=== PATIENT | female | born 1955 | race Caucasian/White ===

== ENCOUNTER 2017-07-17 13:45 | Emergency (ER) | payer OTHER ==
[2017-07-17 13:58] VITALS: BP 122/72
--- NOTE | 2017-07-17 14:29 | UC ---
Throat Pain/Nasal Augustin HPI - HPI Summary HPI Summary: SORE THROAT, HEADACHE, FACIAL PRESSURE, COUGH 1.5 WEEKS. - History of Current Complaint Chief Complaint: UCRespiratory Stated Complaint: THROAT PAIN Time Seen by Provider: 07/17/17 13:58 Hx Obtained From: Patient Onset/Duration: Gradual Onset, Lasting Weeks, Still Present Severity: Mild Cough: Productive Associated Signs & Symptoms: Positive: Hoarseness, Sinus Discomfort, Nasal Discharge - Epiglottits Risk Factors Epiglottis Risk Factors: Negative - Allergies/Home Medications Allergies/Adverse Reactions: Allergies Allergy/AdvReac Type Severity Reaction Status Date / Time Iodinated Contrast Media Allergy Severe sob per Verified 07/17/17 13:49 [IV CONTRAST DYE] pt,near syncope,shaking Morphine Allergy Severe Itching Verified 07/17/17 13:49 Hydrocodone Allergy Mild Itching Verified 07/17/17 13:49 Penicillins Allergy Mild Rash Verified 07/17/17 13:49 Tramadol Allergy Mild Itching Verified 07/17/17 13:49 Aspirin [From Soma Compound] Allergy SEIZURE Verified 07/17/17 13:49 Carisoprodol Allergy SEIZURE Verified 07/17/17 13:49 [From Soma Compound] Metolazone Allergy Unknown Verified 07/17/17 13:52 Reaction Details Milnacipran [From Savella] Allergy Unknown Verified 07/17/17 13:52 Reaction Details Pregabalin [From Lyrica] Allergy Unknown Verified 07/17/17 13:52 Reaction Details PMH/Surg Hx/FS Hx/Imm Hx Previously Healthy: Yes - Surgical History Surgical History: Yes Surgery Procedure, Year, and Place: C SECTION, CHOLECYSTECTOMY, GASTRIC BYPASS, BREAST REDUCTION, RIGHT WRIST SURGERY, HERNIA REPAIR, LEFT leg repair,RT FOOT SURGERY - Family History Known Family History: Positive: Respiratory Disease - Social History Occupation: Disabled Lives: With Family Alcohol Use: None Substance Use Type: None Smoking Status (MU): Former Smoker Type: Cigarettes Amount Used/How Often: 1/2-1PPD Length of Time of Smoking/Using Tobacco: 4-5 years Have You Smoked in the Last Year: Yes When Did the Patient Quit Smoking/Using Tobacco: 2015 - Immunization History Most Recent Influenza Vaccination: Not this year Most Recent Tetanus Shot: <5 YEARS Review of Systems Constitutional: Negative Skin: Negative Eyes: Negative ENT: Nasal Discharge, Sinus Congestion, Sinus Pain/Tenderness Respiratory: Cough Cardiovascular: Negative Gastrointestinal: Negative Genitourinary: Negative Motor: Negative Neurovascular: Negative Musculoskeletal: Negative Neurological: Negative All Other Systems Reviewed And Are Negative: Yes Physical Exam Triage Information Reviewed: Yes Appearance: Well-Appearing, No Pain Distress, Well-Nourished Vital Signs: Initial Vital Signs Temp 97.5 F 07/17/17 13:55 Pulse 88 07/17/17 13:55 Resp 16 07/17/17 13:55 BP 122/72 07/17/17 13:55 Pulse Ox 100 07/17/17 13:55 Vital Signs Reviewed: Yes Eye Exam: Normal ENT: Positive: Pharynx normal, Nasal congestion, TM bulging, TM dull Dental Exam: Normal Neck exam: Normal Respiratory Exam: Other - COUGH Respiratory: Positive: Chest non-tender, Lungs clear, Normal breath sounds, No respiratory distress, No accessory muscle use Cardiovascular Exam: Normal Cardiovascular: Positive: RRR, No Murmur, Pulses Normal Abdominal Exam: Normal Musculoskeletal Exam: Normal Musculoskeletal: Positive: Strength Intact, ROM Intact Neurological Exam: Normal Psychological Exam: Normal Skin Exam: Normal Throat Pain/Nasal Course/Dx - Differential Dx/Diagnosis Differential Diagnosis/HQI/PQRI: Sinusitis, URI Provider Diagnoses: SINUSITIS; UPPER RESPIRATORY INFECTION Discharge - Discharge Plan Condition: Stable Disposition: HOME Prescriptions: Benzonatate CAP* [Tessalon 100 MG CAP*] 100 mg PO TID PRN #15 cap PRN Reason: Cough DOXYcycline CAP(*) [DOXYcycline 100MG CAP(*)] 100 mg PO BID #20 cap Fluconazole [Diflucan 150 MG (NF)] 150 mg PO ONCE #1 tab Patient Education Materials: Sinusitis (ED), Upper Respiratory Infection (ED) Referrals: Carter Levy MD [Primary Care Provider] -
== END 2017-07-17 14:37 | disposition home or self-care (01) ==
LOC: UCEAST 13:45
DX: J06.9 Acute upper respiratory infection, unspecified (principal); Z88.0 Allergy status to penicillin; Z88.6 Allergy status to analgesic agent; Z91.041 Radiographic dye allergy status; Z87.891 Personal history of nicotine dependence; J32.9 Chronic sinusitis, unspecified
CPT/HCPCS: 99211; G0463

== ENCOUNTER 2017-07-22 15:19 | Emergency (ER) | payer OTHER ==
[2017-07-22 15:33] VITALS: BP 148/92
--- NOTE | 2017-07-22 16:28 | UC ---
Anitha Willams Emily, scribed for Gabby Coker MD on 07/22/17 at 1551 . Psychiatric Complaint HPI - HPI Summary HPI Summary: This patient is a 61 year old F presenting to urgent care with a chief complaint of anxiety and requesting medication refill. Pt states recently her niece who was living with pt and her sister passed awaye in the house from a heroin OD. Pt states she did CPR. Pt states she has anxiety and takes valium regularly. Pt states she has used a "few extra" to aid in sleeping. Pt states her PCP has said he is discharging her from practice because of missed appointments. Pt states she attempted earlier today to call Amna Guevara at hospital for assistance with new provider but was not able to "get through" Pt states she is not SI/HI - states is coping, but "it is hard." Pt reports good support network of friends and neighbors. Pt states gets panicy - feels short of breath with these episodes but improved with deep breathing and valium. Pt states has a counselor, Guillaume Medrano, in [place] that she has previously seen and plans to contact to help. Pt denies current complaint of cp, sob, abd pain no n/v/d. No saab, vision changes Patients medication reviewed this visit. - History Of Current Complaint Chief Complaint: UCGeneralIllness Stated Complaint: PANIC ATTACK Time Seen by Provider: 07/22/17 15:41 Hx Obtained From: Patient Onset/Duration: Sudden Onset, Lasting Minutes, Still Present Timing: Intermittent Episode Lasting - 10-15min Severity Initially: Moderate Severity Currently: None Character: Anxious Aggravating Factor(s): Recent Stress Alleviating Factor(s): Medication Recent Stressor(s): of niece from opiate OD in home - Allergies/Home Medications Allergies/Adverse Reactions: Allergies Allergy/AdvReac Type Severity Reaction Status Date / Time Iodinated Contrast Media Allergy Severe sob per Verified 07/22/17 15:35 [IV CONTRAST DYE] pt,near syncope,shaking Morphine Allergy Severe Itching Verified 07/22/17 15:35 Hydrocodone Allergy Mild Itching Verified 07/22/17 15:35 Penicillins Allergy Mild Rash Verified 07/22/17 15:35 Tramadol Allergy Mild Itching Verified 07/22/17 15:35 Carisoprodol Allergy SEIZURE Verified 07/22/17 15:35 [From Soma Compound] Metolazone Allergy Unknown Verified 07/22/17 15:35 Reaction Details Milnacipran [From Savella] Allergy Unknown Verified 07/22/17 15:35 Reaction Details Pregabalin [From Lyrica] Allergy Unknown Verified 07/22/17 15:35 Reaction Details Home Medications: Home Medications Hydrocodone-Acetaminophen [Hydrocodone Bitartrate/AC] 1 tab PO Q6H PRN 07/22/17 [History Confirmed 07/22/17] PMH/Surg Hx/FS Hx/Imm Hx - Additional Past Medical History Additional PMH: Spinal stenosis Previously Healthy: Yes Respiratory History: COPD, Asthma Psychological History: Anxiety - Surgical History Surgical History: Yes Surgery Procedure, Year, and Place: C SECTION, CHOLECYSTECTOMY, GASTRIC BYPASS, BREAST REDUCTION, RIGHT WRIST SURGERY, HERNIA REPAIR, LEFT leg repair,RT FOOT SURGERY - Family History Known Family History: Positive: Respiratory Disease - Social History Occupation: Disabled Lives: Alone Alcohol Use: None Substance Use Type: None Smoking Status (MU): Former Smoker Type: Cigarettes Amount Used/How Often: 1/2-1PPD Length of Time of Smoking/Using Tobacco: 4-5 years Have You Smoked in the Last Year: Yes When Did the Patient Quit Smoking/Using Tobacco: 2016 - Immunization History Most Recent Influenza Vaccination: Not this year Most Recent Tetanus Shot: <5 YEARS Review of Systems Constitutional: Other - Positive difficulty sleeping Skin: Negative Respiratory: Shortness Of Breath - during panic attacks only Cardiovascular: Negative Gastrointestinal: Negative Motor: Negative Neurovascular: Negative Musculoskeletal: Negative Neurological: Negative Psychological: Anxious, Other - Positive "not being able to think" and "everything feeling irrational." Negative SI and HI All Other Systems Reviewed And Are Negative: Yes Physical Exam Triage Information Reviewed: Yes Appearance: Well-Appearing, No Pain Distress, Well-Nourished, Other: - pt became tearful when discussing her niece. Vital Signs: Initial Vital Signs Temp 98.2 F 07/22/17 15:22 Pulse 94 07/22/17 15:22 Resp 18 07/22/17 15:22 BP 148/92 07/22/17 15:22 Pulse Ox 99 07/22/17 15:22 Vital Signs Reviewed: Yes Eye Exam: Normal Eyes: Positive: Conjunctiva Clear, Other: - Sam. EOM intact and full ENT: Positive: Normal ENT inspection, Hearing grossly normal, Pharynx normal Dental Exam: Normal Neck exam: Normal Respiratory Exam: Normal Respiratory: Positive: Chest non-tender, Lungs clear, Normal breath sounds, No respiratory distress, No accessory muscle use Cardiovascular Exam: Normal Cardiovascular: Positive: RRR, No Murmur, Pulses Normal Abdominal Exam: Normal Abdomen Description: Positive: Nontender, No Organomegaly, Soft Bowel Sounds: Positive: Present Musculoskeletal Exam: Normal Musculoskeletal: Positive: Strength Intact, ROM Intact, No Edema Neurological Exam: Normal Neurological: Positive: Alert, Muscle Tone Normal Psychological Exam: Normal Psychological: Positive: Other: - tearful with converstion regarding niece Skin Exam: Normal Psych Complaint Course/Dx - Course Course Of Treatment: Pt presents requesting medication refill for valium as well as lasix. Pt states takes chronically for panic disorder. pt has taken extra pills second to recent unexpected loss. pt denies si/hi pt states transitioning to new pcp. - I call pcp office - closed at time I called. - called mr. Medrano - answering machine. - Amna Guevara - spoke with pt to assist with PCP referral. - checked [facility] - pt has been consistently on valium x 6 months. 10mg TID disp 90 tabs. pt is 2 days early in request for refill. expressed reservation to pt. gave Rx 6 tabs of 5mg Valium. encouraged pt to call PCP for interim care. pt to talk with amna guevara on 07/23 for hopeful pcp appt. Pt to call mr. medrano. pt to return, 911, ED if feels overwhelmed thought of self harm or any other concerns. Pt states understanding and agreement with fatimah. pt was also give Rx from [facility] for [facility] - routine medication - bottle present at encounter. - Differential Dx/Diagnosis Provider Diagnoses: medication refill. anxiety./panic disorder Discharge - Discharge Plan Condition: Stable Disposition: HOME Prescriptions: Diazepam TAB(*) [Valium TAB(*)] 5 mg PO TID PRN #6 tab MDD 3 PRN Reason: Anxiety Furosemide TAB* [Lasix TAB*] 40 mg PO DAILY #15 tab Patient Education Materials: Anxiety (ED), Medicine Refill (ED) Referrals: [facility] [place] [facility] [Outside] Additional Instructions: - It is VERY important you follow-up with physician referral services tomorrow to establish with a new primary doctor - It is recommended you contact Dr. Medrano tomorrow to schedule a follow-up counseling appointment - If you develop increased or uncontrolled anxiety - call 911 or go directly to the emergency department The documentation as recorded by the Anitha bush Emily accurately reflects the service I personally performed and the decisions made by me, Gabby Coker MD.
== END 2017-07-22 16:35 | disposition home or self-care (01) ==
LOC: UCEAST 15:19
DX: F41.0 Panic disorder [episodic paroxysmal anxiety] (principal); Z88.0 Allergy status to penicillin; Z91.041 Radiographic dye allergy status; J44.9 Chronic obstructive pulmonary disease, unspecified; J45.909 Unspecified asthma, uncomplicated; Z87.891 Personal history of nicotine dependence; Z76.0 Encounter for issue of repeat prescription
CPT/HCPCS: 99212; G0463

== ENCOUNTER 2017-08-08 10:49 | Emergency (ER) | payer OTHER ==
[2017-08-08 11:23] VITALS: BP 149/77
--- NOTE | 2017-08-08 12:11 | UC ---
UC General HPI - HPI Summary HPI Summary: 3 weeks of worsening sinus pain and pressure, gets anxiety attacks because she niece Overdosed and - History of Current Complaint Hx Obtained From: Patient Onset/Duration: Gradual Onset, Lasting Weeks - 3 Timing: Constant Onset Severity: Moderate Current Severity: Moderate Pain Location at: frontal and maxillary sinus <Radha Mack - Last Filed: 08/08/17 19:55> <Gabby Coker - Last Filed: 08/09/17 08:21> - History of Current Complaint Chief Complaint: UCGeneralIllness Stated Complaint: SINUS ISSUE Time Seen by Provider: 08/08/17 11:53 - Allergy/Home Medications Allergies/Adverse Reactions: Allergies Allergy/AdvReac Type Severity Reaction Status Date / Time Iodinated Contrast Media Allergy Severe sob per Verified 08/08/17 11:23 [IV CONTRAST DYE] pt,near syncope,shaking Morphine Allergy Severe Itching Verified 08/08/17 11:23 Hydrocodone Allergy Mild Itching Verified 08/08/17 11:23 Penicillins Allergy Mild Rash Verified 08/08/17 11:23 Tramadol Allergy Mild Itching Verified 08/08/17 11:23 Carisoprodol Allergy SEIZURE Verified 08/08/17 11:23 [From Soma Compound] Metolazone Allergy Unknown Verified 08/08/17 11:23 Reaction Details Milnacipran [From Savella] Allergy Unknown Verified 08/08/17 11:23 Reaction Details Pregabalin [From Lyrica] Allergy Unknown Verified 08/08/17 11:23 Reaction Details Home Medications: Home Medications Tiotropium CAP.INH* [Spiriva CAP.INH*] 1 inh INH DAILY 08/08/17 [History Confirmed 08/08/17] PMH/Surg Hx/FS Hx/Imm Hx Previously Healthy: No Cardiovascular History: Hypertension Respiratory History: Asthma Psychological History: Anxiety, Depression, Post Traumatic Stress Disorder - Surgical History Surgical History: Yes Surgery Procedure, Year, and Place: C SECTION, CHOLECYSTECTOMY, GASTRIC BYPASS, BREAST REDUCTION, RIGHT WRIST SURGERY, HERNIA REPAIR, LEFT leg repair,RT FOOT SURGERY - Family History Known Family History: Positive: Respiratory Disease - Social History Occupation: Disabled Lives: With Family Alcohol Use: None Substance Use Type: None Smoking Status (MU): Former Smoker Type: Cigarettes Amount Used/How Often: 1/2-1PPD Length of Time of Smoking/Using Tobacco: 4-5 years Have You Smoked in the Last Year: Yes When Did the Patient Quit Smoking/Using Tobacco: 2016 Cessation Counseling: Patient Advised to Stop - Immunization History Most Recent Influenza Vaccination: NOT UTD Most Recent Tetanus Shot: <5 YEARS <Radha Mack - Last Filed: 08/08/17 19:55> Review of Systems Constitutional: Chills, Fatigue Skin: Negative Eyes: Negative ENT: Sinus Congestion, Sinus Pain/Tenderness Respiratory: Negative Cardiovascular: Negative Gastrointestinal: Negative Genitourinary: Negative Motor: Negative Neurovascular: Negative Musculoskeletal: Negative Neurological: Negative Psychological: Other - teary from time to time during encounter Is Patient Immunocompromised?: No All Other Systems Reviewed And Are Negative: Yes <Radha Mack Last Filed: 08/08/17 19:55> Physical Exam Triage Information Reviewed: Yes Appearance: Well-Appearing, No Pain Distress, Well-Nourished Vital Signs: Initial Vital Signs Temp 98.6 F 08/08/17 11:15 Pulse 97 08/08/17 11:15 Resp 16 08/08/17 11:15 BP 149/77 08/08/17 11:15 Pulse Ox 98 08/08/17 11:15 Vital Signs Reviewed: Yes Eye Exam: Normal Eyes: Positive: Conjunctiva Clear ENT Exam: Normal ENT: Positive: Normal ENT inspection, Hearing grossly normal, Pharynx normal, Nasal congestion, Nasal drainage, TM bulging, Sinus tenderness, Uvula midline. Negative: Tonsillar swelling, Tonsillar exudate, Trismus, Hoarse voice Dental Exam: Normal Neck exam: Normal Neck: Positive: Supple, Nontender Respiratory Exam: Normal Respiratory: Positive: Chest non-tender, Lungs clear, Normal breath sounds, No respiratory distress, No accessory muscle use Cardiovascular Exam: Normal Cardiovascular: Positive: RRR, No Murmur, Pulses Normal, Brisk Capillary Refill Musculoskeletal Exam: Normal Musculoskeletal: Positive: Strength Intact, ROM Intact, No Edema Neurological Exam: Normal Neurological: Positive: Alert, Muscle Tone Normal Psychological Exam: Normal Psychological: Positive: Normal Response To Family Skin Exam: Normal <Radha Mack - Last Filed: 08/08/17 19:55> Vital Signs: Initial Vital Signs Temp 98.6 F 08/08/17 11:15 Pulse 97 08/08/17 11:15 Resp 16 08/08/17 11:15 BP 149/77 08/08/17 11:15 Pulse Ox 98 08/08/17 11:15 <Gabby Coker - Last Filed: 08/09/17 08:21> Course/Dx - Course Course Of Treatment: Doxy, flonase, vistaril, nicotine education, refil Lasix ( she has KCL at home) - Differential Dx - Multi-Symptom Provider Diagnoses: Acute rhinosinusitis, Prolonged Greif, anxiety, nicotine dependent, blood pressure in poor controll (non-adherent to treatment) <Radha Mack - Last Filed: 08/08/17 19:55> Discharge <Radha Mack - Last Filed: 08/08/17 19:55> <Gabby Coker - Last Filed: 08/09/17 08:21> - Discharge Plan Condition: Stable Disposition: HOME Prescriptions: DOXYcycline CAP(*) [DOXYcycline 100MG CAP(*)] 100 mg PO BID #20 cap Furosemide TAB* [Lasix TAB*] 40 mg PO DAILY #10 tab hydrOXYzine PAMOATE CAP* [Vistaril CAP*] 25 - 50 mg PO Q6H PRN #30 cap PRN Reason: anxiety Patient Education Materials: Rhinosinusitis (ED), Hypertension (ED), Anxiety ( ED) Referrals: [facility] [place] [facility] [Outside] - 3 Days Attestation Statement User Type: Provider - I was available for consult. This patient was seen by the SARY. The patient was not presented to, seen by, or examined by me. -Bill <Gabby Coker - Last Filed: 08/09/17 08:21>
== END 2017-08-08 12:30 | disposition home or self-care (01) ==
LOC: UCEAST 10:49
DX: J01.90 Acute sinusitis, unspecified (principal); F41.8 Other specified anxiety disorders; I10 Essential (primary) hypertension; F17.210 Nicotine dependence, cigarettes, uncomplicated; Z91.048 Other nonmedicinal substance allergy status; Z88.5 Allergy status to narcotic agent; Z88.6 Allergy status to analgesic agent; Z88.0 Allergy status to penicillin; Z88.8 Allergy status to other drugs, medicaments and biological substances; Z87.891 Personal history of nicotine dependence; Z71.6 Tobacco abuse counseling
CPT/HCPCS: 99212; G0463

== ENCOUNTER 2018-06-27 10:11 | Emergency (ER) | payer MEDICAID ==
--- OUTSIDE RECORDS SUMMARY | 2018-06-27 10:17 | XMS REPORT | Continuity of Care Document ---
:1955 External Reference #:[id number] Author Name Tennille Crawley M.D. Address [address] [facility] [address] [place] [address] Care Team Providers Name Role Phone Tennille Crawley M.D. 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 Payers Type Date Identification Numbers Payment Provider Subscriber Policy Number: [id number] [facility] Morena Farias PayID: [id number] [address] [place] [address] Policy Number: [id number] [employer] Morena Farias PayID: [id number] [address] [place] [address] Advance Directives Description No Information Available Problems Description No Information Family History Date Family Member(s) Problem(s) Comments General Diabetes General Heart Disease Father Heart Disease Father due to Heart Attack () Father Diabetes Mother Heart Disease Mother due to Heart Disease () Children 1 Siblings 1 Grandchildren None Social History Type Date Description Comments Sex Unknown ETOH Use Denies alcohol use Tobacco Use Start: Unknown Light tobacco smoker (10 or fewer cigarettes/day) Recreational Drug Use Denies Drug Use Smoking Status Reviewed: 06/04/18 Light tobacco smoker (10 or fewer cigarettes/day) Allergies, Adverse Reactions, Alerts Date Description Reaction Status Severity Comments 08/13/2017 Morphine Active 08/13/2017 Contrast Dye Active 08/13/2017 Penicillin Active 08/13/2017 Metolazone Active Medications Medication Date Status Form Strength Qnty SIG Indications Ordering Provider Benzonatate 06/05/ Active Capsules 100mg 30caps 1 cap by M15.9 Misbah, 2018 mouth Ahmad M., three M.D. times a day as needed Ciprofloxacin 06/05/ Hx Tablets 500mg 14tabs 1 by mouth M15.9 Misbah, HCL 2018 - twice a Ahmad M., 06/06/ day M.D. 2018 Prednisone 06/05/ Hx Tablets 20mg 20tabs 2 tab by [id number] Misbah, 2018 - mouth Ahmad M., 06/20/ daily 4 M.D. 2018 days,30x3d ,20x2d,10x 7d Xopenex 05/15/ Active Nebulizer 1.25mg/3ML 72ml use with J44.9 Misbah, 2018 nbulizer Tennille Zhong, every 4 M.D. hours as needed Gabapentin 05/07/ Active Capsules 300mg 180cap 1 cap by M51.37 Misbah, 2018 s mouth Tennille Zhong, twice a M.D. day M54.2 M15.9 Nebulizer 05/07/2018 Active Device 1units use as Baljinder44.9 raul Crawley M.D. Nebulizer 05/07/2018 Active Kit 2units use with Baljinder44Louis9 Misbah Kit/Tubing/Keisha nebulizer ericka Barkeriece every 4 hours M.D. as needed Ventolin HFA 05/07/2018 Active Aerosol 108( 36gm inhale two J44.9 Misbah , 90Ba puffs by Tennille Zhong se) mouth every 4 M.D. mcg/ hours as Act needed Nicoderm CQ 05/07/2018 Active Patches 24HR 14mg 28units apply one J44.9 Misbah, /24H patch to new Tennille Zhong R area of skin M.DLouis daily after removal of old patch F17.210 Cyclobenzaprine HCL 03/21/2018 Active Tablets 10mg 90tabs 1 tab by R07.9 Misbah, mouth three Ahmad M., times a day M.D. as needed for muscle spasms M51.37 M54.2 Sertraline HCL 12/26/2017 Active Tablets 100mg 90tabs 1 by mouth F41.9 Misbah, Ahmad every day M., M.D. F33.9 M15.9 Meclizine HCL 10/08/2017 Active Tablets 25mg 60tabs take one H81.13 Misbah, Ahmad tablet by Trevin MLouisD. mouth every 6 hours as needed Diazepam 08/27/2017 Active Tablets 5mg 60tabs 1 tab by F33.9 Misbah, Ahmad mouth twice a M., M.D. day as needed F41.9 G47.00 Potassium 08/27/2017 Active Tablets ER 20Meq 90tabs Take One R60.0 Misbah, Chloride Tova Tablet By Tennille Zhong, ER Mouth Twice M.D. A Day I10 E87.6 Spiriva 08/13/2017 Active Capsules 18mcg 90caps inhale the J44.9 Misbah, Handihaler contents of Connormad M., one capsule M.D. by mouth every day J45.909 Fluticasone Active Suspension 50mcg/Act 16gm 2 sprays J30.9 Misbah, Propionate in each Ahmad nostril M., M.D. every day as needed Vitamin C Active Chewtabs 250mg Chew And Z98.84 Unknown Swallow One Tablet By Mouth Two Times A Day Cyanocobalamin Active Solution 1000mcg/ML 1ml inject Z98.84 Unknown 1000mcg today given to l deltoid D51.9 Lidocaine Active Cream 4% 90gm Apply To Affected M54.2 Misbah , Ahmad MLouis, Area Three To Four M.D. Times Daily M51.37 M15.9 Furosemide Active Tablets 40mg 90tabs take one tablet R60.0 Misbah, Ahmad by mouth every M., M.D. day I10 Ciprofloxacin HCL Hx Tablets 500mg 14tabs 1 by mouth J20.9 Misbah, 018 - twice a day Ahmad M., M.D. 018 Prednisone Hx Tablets 20mg 20tabs 2 tab by mouth J20.9 Misbah, 018 - daily 4 Ahmad M., days,30x3d,20x2 M.D. 018 d,10x7d Albuterol Sulfate Hx Nebulizer (2.5mg/ 180ml use with J44.9 Misbah, 018 - 3ML) nebulizer q4 Ahmad M., 0.083% hours as needed M.D. 018 for cough/sob Benzonatate Hx Capsules 100mg 30caps 1 cap by mouth R05 Misbah, 018 - three times a Ahmad M., day as needed M.D. 018 Metaxalone Hx Tablets 800mg 90tabs 1 tab by mouth R07.9 Misbah, 018 - three times a Ahmad M., day as needed M.D. 018 Ciprofloxacin HCL Hx Tablets 500mg 20tabs 1 by mouth J44.9 Misbah, 018 - twice a day Ahmad M., M.D. 018 Tizanidine HCL Hx Tablets 4mg 90tabs 1 tab by mouth J44.9 Misbah , 018 - three times a Ahmad M., day as needed M.D. 018 Skelaxin Hx Tablets 800mg 90tabs 1 Tab PO tid M51.37 Misbah, 018 - prn Ahmad M., M.D. 018 Bactrim DS Hx Tablets 800-160 20tabs 1 tab by mouth J44.9 Misbah , 018 - mg twice a day x Ahmad M., 10 days M.D. 018 Cyclobenzaprine HCL Hx Tablets 10mg 90tabs 1 tab by mouth M51.37 Misbah, 018 - three times a Ahmad M., day as needed M.D. 018 Azithromycin Hx Tablets 500mg 9tabs 1 by mouth Misbah, 017 - every day Ahmad M., M.D. 017 Benzonatate Hx Capsules 100mg 30caps 1 cap by mouth J44.9 Misbah , 017 - three times a Ahmad M., day as needed M.D. 017 Meclizine HCL Hx Tablets 25mg 60tabs 1 tab by mouth Misbah, 017 - every 6 hours Ahmad M., as needed M.D. 017 Clarithromycin Hx Tablets 500mg 20tabs 1 tab by mouth Misbah, 017 - twice a day Ahmad M., M.D. 017 Buspirone HCL Hx Tablets 15mg 60tabs 1 tab by mouth F33.9 Misbah , 017 - twice a day Ahmad M., M.D. 017 F41.9 Doxycycline - Hx Capsules 100mg Unknown Hyclate 08/13/2017 Gabapentin - Hx Capsules 100mg 180cap 1 by mouth M51.3 Misbah , Ahmad 05/07/2018 s twice a day 7 M.Sivakumar M54.2 M15.9 Benzonatate - Hx Capsules 100mg Unknown 08/07/2017 Diazepam - Hx Tablets 10mg Take One Unknown 08/13/2017 Tablet By Mouth Three Times A Day as Needed Maximum Daily DO Potassium - Hx Tablets ER 10Meq 90tab 1 by mouth R60.0 Misbah , Ahmad Chloride ER 08/27/2017 s every day Sivakumar Zhong I10 Medications Administered in Office Medication Date Status Form Strength Qnty SIG Indications Ordering Provider B12 Administered Injection Misbah, Ahmad 8 M.Sivakumar B12 Administered Injection Misbah, Ahmad 8 M.Sivakumar B12 Administered Injection Misbah, Ahmad 8 M.Sivakumar B12 Administered Injection Misbah, Ahmad 8 M.Sivakumar B12 Administered Injection Misbah, Ahmad 8 M.Sivakumar B12 Administered Injection Misbah, Ahmad 8 M.Sivakumar B12 Administered Injection Misbah, Ahmad 7 M., M.D. B12 Administered Injection Tennille Crawley M.D. B12 Administered Injection Tennille Crawley M.D. Immunizations CPT Code Status Date Vaccine Lot # [id number] Given 08/27/2017 Flu Vaccine [id number] Vital Signs Date Vital Result Comment 06/05/2018 9:57am BP Systolic 122 mmHg BP Diastolic 70 mmHg Height 60 inches 5'0" Weight 186.00 lb BMI (Body Mass Index) 36.3 kg/m2 Heart Rate 103 /min Respiratory Rate 16 /min 05/07/2018 10:10am BP Systolic 140 mmHg BP Diastolic 68 mmHg Height 60 inches 5'0" Weight 182.00 lb BMI (Body Mass Index) 35.5 kg/m2 Heart Rate 110 /min Respiratory Rate 16 /min 03/21/2018 10:02am BP Systolic 140 mmHg BP Diastolic 82 mmHg Height 60 inches 5'0" Weight 175.00 lb BMI (Body Mass Index) 34.2 kg/m2 Heart Rate 105 /min Respiratory Rate 16 /min 12/26/2017 2:04pm BP Systolic 144 mmHg BP Diastolic 84 mmHg Height 60 inches 5'0" Weight 175.00 lb BMI (Body Mass Index) 34.2 kg/m2 Heart Rate 106 /min Respiratory Rate 18 /min 11/15/2017 10:06am BP Systolic 128 mmHg BP Diastolic 80 mmHg Height 60 inches 5'0" Weight 165.00 lb BMI (Body Mass Index) 32.2 kg/m2 Heart Rate 97 /min Respiratory Rate 16 /min 10/14/2017 1:34pm BP Systolic 140 mmHg BP Diastolic 82 mmHg Height 60 inches 5'0" Weight 160.00 lb BMI (Body Mass Index) 31.2 kg/m2 Heart Rate 91 /min Body Temperature 97.3 F Respiratory Rate 18 /min 09/12/2017 9:43am BP Systolic 136 mmHg BP Diastolic 78 mmHg Height 60 inches 5'0" Weight 157.00 lb BMI (Body Mass Index) 30.7 kg/m2 Heart Rate 101 /min Body Temperature 98.5 F Respiratory Rate 18 /min 08/27/2017 10:12am BP Systolic 130 mmHg BP Diastolic 82 mmHg Height 60 inches 5'0" Weight 154.00 lb BMI (Body Mass Index) 30.1 kg/m2 Heart Rate 94 /min Respiratory Rate 16 /min 08/13/2017 2:39pm BP Systolic 142 mmHg BP Diastolic 62 mmHg Height 60 inches 5'0" Weight 152.00 lb BMI (Body Mass Index) 29.7 kg/m2 Heart Rate 115 /min Respiratory Rate 16 /min Results Test Date Facility Test Result H/L Range Note Iron & Iron Binding Capacity 08/13/2017 [facility] Iron 86 g/dL 50 -212 Unsaturated Iron Binding 319 g/dL Total Iron Binding Capacity 405 g/dL 250-450 % Iron Saturation 21 % 15-55 Laboratory test 08/13/2017 [facility] C Reactive 11.44 mg/L High < 5.00 1 finding Protein Ferritin 18.9 ng/mL 11-307 Folic Acid (Folate) 10.38 ng/mL >3.99 Anca Panel For Vasculitis 08/13/2017 [facility] Myeloperoxidase AB < 0.2 U 2 Proteinase 3 AB < 0.2 U 3 Laboratory test 08/13/2017 [facility] Angiotension 24 U/L 8 - 53 4 finding Converting Enzyme Rheumatoid Factor <15 IU/mL <15 5 Protein 08/13/2017 [facility] Total Protein(Pep) 7.7 g/dL 6.3 - 7.9 Electrophoresis Albumin 3.8 g/dL 3.4-4.7 Alpha-1 Globulin 0.4 g/dL 0.1-0.3 Alpha-2 Globulin 1.4 g/dL 0.6-1.0 Beta Globulin 1.2 g/dL 0.7-1.2 Gamma Globulin 1.0 g/dL 0.6-1.6 Albumin/Globulin Ratio 0.99 Impression See Comment 6 Connective Tissue Panel 08/13/2017 [facility] Anti-Nuclear Antibody 0.1 U 7 Cyclic Citrullinated Peptide <15.6 U 8 Interpretation See Comment 9 Laboratory test 08/13/2017 [facility] Vitamin D, 1,25 107 pg/mL 18- 78 10 finding Dihydroxy Urine Drug [facility] 08/13/2017 [facility] [id number] Negative 5 11, 12 ng/mL Antidepressants 08/13/2017 [facility] Amitriptyline Negative 20 Panel By LC/MS/MS ng/mL Clomipramine Negative ng/mL 20 Desipramine Negative ng/mL 20 Doxepin Negative ng/mL 20 Fluoxetine Negative ng/mL 20 Imipramine Negative ng/mL 20 Norclomipramine Negative ng/mL 20 Nordoxepin Negative ng/mL 20 Nortriptyline Negative ng/mL 20 Sertraline Negative ng/mL 20 Trimipramine Negative ng/mL 20 13 Barbiturates Panel By 08/13/2017 [facility] Butalbital Negative ng/mL 100 LC/MS/MS Pentobarbital Negative ng/mL 100 Phenobarbital Negative ng/mL 100 Secobarbital Negative ng/mL 100 14 Benzodiazepines 08/13/2017 [facility] 2-Hydroxyethylflurazepam Negative 10 Panel By LC/MS/MS ng/mL 7-Aminoclonazepam Negative ng/mL 10 Alprazolam Negative ng/mL 10 Chlordiazepoxide Negative ng/mL 10 Clonazepam Negative ng/mL 10 Desalkylflurazepam Negative ng/mL 10 Diazepam Negative ng/mL 10 Lorazepam Negative ng/mL 10 Midazolam Negative ng/ml 10 Nordiazepam Positive Inconsi <SEE NOTE> ng/mL 10 15 Alpha-hydroxyalprazolam Negative ng/mL 10 Alpha-Hydroxymidazolam Negative ng/mL 10 Alpha-Hydroxytriazolam Negative ng/mL 10 Oxazepam Positive >1000 I <SEE NOTE> ng/mL 10 16 Prazepam Negative ng/mL 10 Temazepam Positive >1000 I <SEE NOTE> ng/mL 10 17 Zolpidem Negative ng/mL 10 18 Buprenorphine Panel By 08/13/2017 [facility] Buprenorphine Negative ng/mL 5 LC/MS/MS Naloxone Negative ng/mL 10 Norbuprenorphine Negative ng/mL 5 19 Methadone Panel By 08/13/2017 [facility] Eddp Negative ng/mL 10 LC/MS/MS Methadone Negative ng/mL 10 20 Opiates Panel By 08/13/2017 [facility] 6-Noel (Heroin Negative ng/ mL 5 LC/MS/MS Metabolite) Codeine Negative ng/mL 50 Hydrocodone Negative ng/mL 50 Hydromorphone Negative ng/mL 50 Morphine Negative ng/mL 50 Norhydrocodone Negative ng/mL 50 Noroxycodone Negative ng/mL 50 Noroxymorphone Negative ng/mL 50 Oxycodone Negative ng/mL 50 Oxymorphone Negative ng/mL 50 21 Amphetamine Panel By 08/13/2017 [facility] Amphetamine Negative ng/mL 50 LC/MS/MS Methamphetamine Negative ng/mL 50 Mdma (Ecstasy) Negative ng/mL 50 Mda Negative ng/ml 50 Mdea Negative ng/mL 50 22 Cocaine Panel By 08/13/2017 [facility] Benzoylecgonine Negative ng/mL 50 23 LC/MS/MS (Cocaine) Laboratory test 08/13/2017 [facility] Tramadol Negative ng/mL 5 24 finding Gabapentin Positive >59841 <SEE NOTE> ng/mL 100 25 Message (SEE NOTE) 26 Buspirone 08/13/2017 [facility] Buspirone Negative Inconsi <SEE 0.5 27 NOTE> ng/mL PDF SEE IMAGE CBC Auto Diff 08/13/2017 [facility] White Blood Count 10.1 10^3/uL 3.5-10.8 Red Blood Count 4.48 10^6/uL 4.0-5.4 Hemoglobin 13.8 g/dL 12.0-16.0 Hematocrit 40 % 35-47 Mean Corpuscular Volume 89 fL 80-97 Mean Corpuscular Hemoglobin 31 pg 27-31 Mean Corpuscular HGB Conc 34 g/dL 31-36 Red Cell Distribution Width 16 % High 10.5-15 Platelet Count 241 10^3/uL 150-450 Mean Platelet Volume 8 um3 7.4-10.4 Abs Neutrophils 6.7 10^3/uL 1.5-7.7 Abs Lymphocytes 2.6 10^3/uL 1.0-4.8 Abs Monocytes 0.7 10^3/uL 0-0.8 Abs Eosinophils 0 10^3/uL 0-0.6 Abs Basophils 0.1 10^3/uL 0-0.2 Abs Nucleated RBC 0 10^3/uL Granulocyte % 66.2 % 38-83 Lymphocyte % 25.4 % 25-47 Monocyte % 7.2 % 1-9 Eosinophil % 0.4 % 0-6 Basophil % 0.8 % 0-2 Nucleated Red Blood Cells % 0 Comp Metabolic Panel 08/13/2017 [facility] Sodium 135 mmol/L 133- 145 Potassium 2.8 mmol/L Low 3.5-5.0 Chloride 95 mmol/L Low 101-111 Co2 Carbon Dioxide 28 mmol/L 22-32 Anion Gap 12 mmol/L High 2-11 Glucose 92 mg/dL 70-100 Blood Urea Nitrogen 16 mg/dL 6-24 Creatinine 0.81 mg/dL 0.51-0.95 BUN/Creatinine Ratio 19.8 8-20 Calcium 9.9 mg/dL 8.6-10.3 Total Protein 7.5 g/dL 6.4-8.9 Albumin 4.3 g/dL 3.2-5.2 Globulin 3.2 g/dL 2-4 Albumin/Globulin Ratio 1.3 1-3 Total Bilirubin 0.40 mg/dL 0.2-1.0 Alkaline Phosphatase 96 U/L 34-104 Alt 8 U/L 7-52 Ast 13 U/L 13-39 Egfr Non- 72.1 >60 Egfr 92.8 >60 28 Laboratory test 08/13/2017 [facility] TSH (Thyroid Stim 1.59 mcIU/mL 0.34-5.60 29 finding Horm) Lipid Profile 08/13/2017 [facility] Triglycerides 147 mg/dL 30 (Trig/Chol/HDL) Cholesterol 193 mg/dL 31 HDL Cholesterol 75.7 mg/dL 32 LDL Cholesterol 88 mg/dL 33 Laboratory test finding 08/13/2017 [facility] Vitamin B12 232 pg/mL 180-914 34 Vitamin D Total 25(Oh) 20.8 ng/mL 20-50 35 Erythrocyte Sed Rate 37 mm/Hr High 0-30 Creatine Kinase(CK) 44 U/L 10-223 1 Acute inflammation: >10.00 2 REFERENCE VALUE <0.4 (Negative) 3 REFERENCE VALUE <0.4 (Negative) Test Performed by: [place] [address] 4 Test Performed by: [place] [address] 5 Test Performed by: [place] [address] 6 RESULT: No apparent monoclonal protein on serum electrophoresis. Test Performed by: [place] [id number] 7 REFERENCE VALUE <=1.0 (Negative) 8 REFERENCE VALUE <20.0 (Negative) 9 Tests for antibodies to dsDNA and LIZ antigens are not performed automatically unless the CANDIS result is > or= 3.0 U. Studies performed at [facility] indicate that positive CANDIS results <3.0 U are rarely accompanied by positive second order tests. Test Performed by: [facility] - [address] [id number] 10 ADDITIONAL INFORMATION This test was developed and its performance characteristics determined by [facility] in a manner consistent with CLIA requirements. This test has not been cleared or approved by the U.S. Food and Drug Administration. Test Performed by: [facility] - [facility] [address] [place] [address] 11 Prescribed Medications: Gabapentin (Gabapentin), Buspirone (Buspirone), LIDOCAINE, SPIRIVA 12 Prescribed Medications: Gabapentin (Gabapentin), Buspirone (Buspirone), LIDOCAINE, SPIRIVA 13 Prescribed Medications: Gabapentin (Gabapentin), Buspirone (Buspirone), LIDOCAINE, SPIRIVA 14 Prescribed Medications: Gabapentin (Gabapentin), Buspirone (Buspirone), LIDOCAINE, SPIRIVA 15 Positive Inconsistent 16 Positive >1000 Inconsistent Oxazepam is a metabolite of Temazepam, Nordiazepam, Diazepam or Clorazepate. Oxazepam (Serax) is also available as a prescription drug. 17 Positive >1000 Inconsistent 18 Prescribed Medications: Gabapentin (Gabapentin), Buspirone (Buspirone), LIDOCAINE, SPIRIVA 19 Prescribed Medications: Gabapentin (Gabapentin), Buspirone (Buspirone), LIDOCAINE, SPIRIVA 20 Prescribed Medications: Gabapentin (Gabapentin), Buspirone (Buspirone), LIDOCAINE, SPIRIVA 21 Prescribed Medications: Gabapentin (Gabapentin), Buspirone (Buspirone), LIDOCAINE, SPIRIVA 22 Prescribed Medications: Gabapentin (Gabapentin), Buspirone (Buspirone), LIDOCAINE, SPIRIVA 23 Prescribed Medications: Gabapentin (Gabapentin), Buspirone (Buspirone), LIDOCAINE, SPIRIVA 24 Prescribed Medications: Gabapentin (Gabapentin), Buspirone (Buspirone), LIDOCAINE, SPIRIVA 25 Positive >05699 Consistent The common brand name for Gabapentin is Neurontin. Prescribed Medications: Gabapentin (Gabapentin), Buspirone (Buspirone), LIDOCAINE, SPIRIVA 26 Urine Drug Screen, Specimen validity & Ethyl glucuronide testing cannot be performed due to insufficient quantity received. Prescribed Medications: Gabapentin (Gabapentin), Buspirone (Buspirone), LIDOCAINE, SPIRIVA 27 Negative Inconsistent 28 Because ethnic data is not always readily available, this report includes an eGFR for both -Americans and non- Americans. The National Kidney Disease Education Program (NKDEP) does not endorse the use of the MDRD equation for patients that are not between the ages of 18 and 70, are , have extremes of body size, muscle mass, or nutritional status, or are non- or non-. According to the National Kidney Foundation, irrespective of diagnosis, the stage of the disease is based on the level of kidney function: Stage Description GFR(mL/min/1.73 m(2)) 1 Kidney damage with normal or decreased GFR 90 2 Kidney damage with mild decrease in GFR 60-89 3 Moderate decrease in GFR 30-59 4 Severe decrease in GFR 15-29 5 Kidney failure <15 (or dialysis) 29 [id number] 30 Desirable: <150 Borderline High: 150-199 High: 200-499 Very High: >500 31 Desirable: <200 Borderline High: 200-239 High: >239 32 Low: <40 Desirable: 40-60 High: >60 33 Desirable: <100 Near Optimal: 100-129 Borderline High: 130-159 High: 160-189 Very High: >189 34 Normal Range 180 to 914 Indeterminate Range 145 to 180 Deficient Range <145 35 [id number] Procedures Date Code Description Status 06/05/2018 69244 Injection DX/Therapeutic/Prophy Completed 06/05/2018 02847 Spirometry Completed 06/05/2018 84183 Tympanometry Completed 05/07/2018 55169 Injection DX/Therapeutic/Prophy Completed 05/07/2018 44499 Spirometry Completed 05/07/2018 74146 Tympanometry Completed 03/21/2018 70104 Injection DX/Therapeutic/Prophy Completed 12/26/2017 32923 Injection DX/Therapeutic/Prophy Completed 11/15/2017 14844 Injection DX/Therapeutic/Prophy Completed 11/15/2017 31361 Spirometry Completed 11/15/2017 57110 Tympanometry Completed 11/12/2017 87116 Injection DX/Therapeutic/Prophy Completed 10/14/2017 42209 Tympanometry Completed 10/14/2017 80074 Spirometry Completed 09/26/2017 43211 Injection DX/Therapeutic/Prophy Completed 09/12/2017 58120 Spirometry Completed 09/12/2017 15869 Tympanometry Completed 09/10/2017 33584 Injection DX/Therapeutic/Prophy Completed 08/27/2017 01672 Injection DX/Therapeutic/Prophy Completed 08/13/2017 26787 Visual Screening Test Completed 08/13/2017 91706 Spirometry Completed 08/13/2017 62474 EKG Completed 08/13/2017 63450 Tympanometry Completed 08/13/2017 25166 Audiometry, Bekesy, Screening Completed 10/07/2014 [id number] Mammogram Completed 10/07/2010 [id number] Colonoscopy Completed Encounters Type Date Location Provider Dx Diagnosis Office Visit 06/05/2018 [facility] Tennille Crawley, M15.9 Polyosteoarthritis, 10: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 unspecified E78.2 Mixed hyperlipidemia J44.9 Chronic obstructive pulmonary disease, unspecified F17.210 Nicotine dependence, cigarettes, uncomplicated E66.01 Morbid (severe) obesity due to excess calories H90.6 Mixed conductive and sensorineural hearing loss, bilateral J30.9 Allergic rhinitis, unspecified M25.539 Pain in unspecified wrist H81.13 Benign paroxysmal vertigo, bilateral F41.9 Anxiety disorder, unspecified G47.00 Insomnia, unspecified I10 Essential (primary) hypertension M54.6 Pain in thoracic spine M51.37 Other intervertebral disc degeneration, lumbosacral region J45.909 Unspecified asthma, uncomplicated M79.606 Pain in leg, unspecified E87.6 Hypokalemia L20.9 Atopic dermatitis, unspecified 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 D51.9 Vitamin B12 deficiency anemia, unspecified E87.6 Hypokalemia E66.01 Morbid (severe) obesity due to excess calories Z98.84 Bariatric surgery status F17.210 Nicotine dependence, cigarettes, uncomplicated H90.6 Mixed conductive and sensorineural hearing loss, bilateral J45.909 Unspecified asthma, uncomplicated H53.30 Unspecified disorder of binocular vision G47.00 Insomnia, unspecified F33.9 Major depressive disorder, recurrent, unspecified F41.9 Anxiety disorder, unspecified J30.9 Allergic rhinitis, unspecified L20.9 Atopic dermatitis, unspecified R60.0 Localized edema H81.13 Benign paroxysmal vertigo, bilateral M25.539 Pain in unspecified wrist M79.606 Pain in leg, unspecified M15.9 Polyosteoarthritis, unspecified M54.2 Cervicalgia M54.6 Pain in thoracic spine M51.37 Other intervertebral disc degeneration, lumbosacral region E78.2 Mixed hyperlipidemia I10 Essential (primary) hypertension J44.9 Chronic obstructive pulmonary disease, unspecified R07.9 Chest pain, unspecified J20.9 Acute bronchitis, unspecified J01.40 Acute pansinusitis, unspecified H66.93 Otitis media, unspecified, bilateral R06.02 Shortness of breath R05 Cough R09.81 Nasal congestion Office Visit 03/21/2018 10:00a [facility] Tennille CrawleyLouis, M79.671 Pain in right M.D. foot Z79.899 Other chcf (current) drug therapy D51.9 Vitamin B12 deficiency anemia, unspecified E87.6 Hypokalemia E66.01 Morbid (severe) obesity due to excess calories Z98.84 Bariatric surgery status F17.210 Nicotine dependence, cigarettes, uncomplicated H90.6 Mixed conductive and sensorineural hearing loss, bilateral J45.909 Unspecified asthma, uncomplicated H53.30 Unspecified disorder of binocular vision G47.00 Insomnia, unspecified F33.9 Major depressive disorder, recurrent, unspecified F41.9 Anxiety disorder, unspecified J30.9 Allergic rhinitis, unspecified L20.9 Atopic dermatitis, unspecified H81.13 Benign paroxysmal vertigo, bilateral R60.0 Localized edema M25.539 Pain in unspecified wrist M79.606 Pain in leg, unspecified M15.9 Polyosteoarthritis, unspecified M54.2 Cervicalgia M54.6 Pain in thoracic spine M51.37 Other intervertebral disc degeneration, lumbosacral region E78.2 Mixed hyperlipidemia I10 Essential (primary) hypertension J44.9 Chronic obstructive pulmonary disease, unspecified R07.9 Chest pain, unspecified Office Visit 12/26/2017 2:15p [facility] MisbahTennille J01.40 Acute pansinusitis, M., M.D. unspecified H66.93 Otitis media, unspecified, bilateral R06.02 Shortness of breath R05 Cough R09.81 Nasal congestion J44.9 Chronic obstructive pulmonary disease, unspecified I10 Essential (primary) hypertension E78.2 Mixed hyperlipidemia M51.37 Other intervertebral disc degeneration, lumbosacral region M54.6 Pain in thoracic spine M54.2 Cervicalgia M15.9 Polyosteoarthritis, unspecified M79.606 Pain in leg, unspecified M25.539 Pain in unspecified wrist R60.0 Localized edema H81.13 Benign paroxysmal vertigo, bilateral L20.9 Atopic dermatitis, unspecified J30.9 Allergic rhinitis, unspecified F41.9 Anxiety disorder, unspecified F33.9 Major depressive disorder, recurrent, unspecified G47.00 Insomnia, unspecified H53.30 Unspecified disorder of binocular vision J45.909 Unspecified asthma, uncomplicated H90.6 Mixed conductive and sensorineural hearing loss, bilateral F17.210 Nicotine dependence, cigarettes, uncomplicated Z98.84 Bariatric surgery status E66.01 Morbid (severe) obesity due to excess calories E87.6 Hypokalemia D51.9 Vitamin B12 deficiency anemia, unspecified Z79.899 Other chcf (current) drug therapy M79.671 Pain in right foot Office Visit 11/15/2017 10:30a [facility] Tennille Crawley J01.40 Acute pansinusitisTrevin M.D. unspecified H66.93 Otitis media, unspecified, bilateral R06.02 Shortness of breath R05 Cough R09.81 Nasal congestion J44.9 Chronic obstructive pulmonary disease, unspecified I10 Essential (primary) hypertension E78.2 Mixed hyperlipidemia M51.37 Other intervertebral disc degeneration, lumbosacral region M54.6 Pain in thoracic spine M54.2 Cervicalgia M15.9 Polyosteoarthritis, unspecified M79.606 Pain in leg, unspecified M25.539 Pain in unspecified wrist R60.0 Localized edema H81.13 Benign paroxysmal vertigo, bilateral L20.9 Atopic dermatitis, unspecified J30.9 Allergic rhinitis, unspecified F41.9 Anxiety disorder, unspecified F33.9 Major depressive disorder, recurrent, unspecified G47.00 Insomnia, unspecified H53.30 Unspecified disorder of binocular vision J45.909 Unspecified asthma, uncomplicated H90.6 Mixed conductive and sensorineural hearing loss, bilateral F17.210 Nicotine dependence, cigarettes, uncomplicated Z98.84 Bariatric surgery status E66.01 Morbid (severe) obesity due to excess calories E87.6 Hypokalemia D51.9 Vitamin B12 deficiency anemia, unspecified Z79.899 Other chcf (current) drug therapy Office Visit 10/14/2017 1:30p [facility] Mer J01.40 Acute pansinusitis, LEÓN Mendez unspecified H66.93 Otitis media, unspecified, bilateral R06.02 Shortness of breath R05 Cough R09.81 Nasal congestion J44.9 Chronic obstructive pulmonary disease, unspecified I10 Essential (primary) hypertension E78.2 Mixed hyperlipidemia M51.37 Other intervertebral disc degeneration, lumbosacral region M54.6 Pain in thoracic spine M54.2 Cervicalgia M15.9 Polyosteoarthritis, unspecified M79.606 Pain in leg, unspecified M25.539 Pain in unspecified wrist R60.0 Localized edema H81.13 Benign paroxysmal vertigo, bilateral L20.9 Atopic dermatitis, unspecified J30.9 Allergic rhinitis, unspecified F41.9 Anxiety disorder, unspecified F33.9 Major depressive disorder, recurrent, unspecified G47.00 Insomnia, unspecified H53.30 Unspecified disorder of binocular vision J45.909 Unspecified asthma, uncomplicated H90.6 Mixed conductive and sensorineural hearing loss, bilateral F17.210 Nicotine dependence, cigarettes, uncomplicated Z98.84 Bariatric surgery status E66.01 Morbid (severe) obesity due to excess calories E87.6 Hypokalemia D51.9 Vitamin B12 deficiency anemia, unspecified Z79.899 Other chcf (current) drug therapy Office Visit 09/12/2017 9:45a [facility] Tennille Crawley J20.9 Acute bronchitisTrevin M.D. unspecified J01.40 Acute pansinusitis, unspecified H66.93 Otitis media, unspecified, bilateral R06.02 Shortness of breath R05 Cough R09.81 Nasal congestion J44.9 Chronic obstructive pulmonary disease, unspecified I10 Essential (primary) hypertension E78.2 Mixed hyperlipidemia M51.37 Other intervertebral disc degeneration, lumbosacral region M54.6 Pain in thoracic spine M54.2 Cervicalgia M15.9 Polyosteoarthritis, unspecified M79.606 Pain in leg, unspecified M25.539 Pain in unspecified wrist R60.0 Localized edema H81.13 Benign paroxysmal vertigo, bilateral L20.9 Atopic dermatitis, unspecified J30.9 Allergic rhinitis, unspecified F41.9 Anxiety disorder, unspecified F33.9 Major depressive disorder, recurrent, unspecified G47.00 Insomnia, unspecified H53.30 Unspecified disorder of binocular vision J45.909 Unspecified asthma, uncomplicated H90.6 Mixed conductive and sensorineural hearing loss, bilateral F17.210 Nicotine dependence, cigarettes, uncomplicated Z98.84 Bariatric surgery status E66.01 Morbid (severe) obesity due to excess calories E87.6 Hypokalemia D51.9 Vitamin B12 deficiency anemia, unspecified 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 unspecified J01.40 Acute pansinusitis, unspecified H66.93 Otitis media, unspecified, bilateral R06.02 Shortness of breath R05 Cough R09.81 Nasal congestion J44.9 Chronic obstructive pulmonary disease, unspecified I10 Essential (primary) hypertension E78.2 Mixed hyperlipidemia M51.37 Other intervertebral disc degeneration, lumbosacral region M54.6 Pain in thoracic spine M54.2 Cervicalgia M15.9 Polyosteoarthritis, unspecified M79.606 Pain in leg, unspecified M25.539 Pain in unspecified wrist R60.0 Localized edema H81.13 Benign paroxysmal vertigo, bilateral L20.9 Atopic dermatitis, unspecified J30.9 Allergic rhinitis, unspecified F41.9 Anxiety disorder, unspecified F33.9 Major depressive disorder, recurrent, unspecified G47.00 Insomnia, unspecified H53.30 Unspecified disorder of binocular vision J45.909 Unspecified asthma, uncomplicated H90.6 Mixed conductive and sensorineural hearing loss, bilateral F17.210 Nicotine dependence, cigarettes, uncomplicated Z98.84 Bariatric surgery status E66.01 Morbid (severe) obesity due to excess calories E87.6 Hypokalemia D51.9 Vitamin B12 deficiency anemia, unspecified Z79.899 Other chcf (current) drug therapy Z23 Encounter for immunization Office Visit 08/13/2017 3:00p [facility] Tennille Crawley Z00.01 Encounter for Sivakumar Zhong general adult medical exam w abnormal findings J20.9 Acute bronchitis, unspecified J01.40 Acute pansinusitis, unspecified H66.93 Otitis media, unspecified, bilateral R06.02 Shortness of breath R05 Cough Z68.29 Body mass index (BMI) 29.0-29.9, adult R09.81 Nasal congestion J44.9 Chronic obstructive pulmonary disease, unspecified F17.210 Nicotine dependence, cigarettes, uncomplicated I10 Essential (primary) hypertension E78.2 Mixed hyperlipidemia Z98.84 Bariatric surgery status Z12.31 Encntr screen mammogram for malignant neoplasm of breast E66.01 Morbid (severe) obesity due to excess calories M51.37 Other intervertebral disc degeneration, lumbosacral region M54.6 Pain in thoracic spine M54.2 Cervicalgia M15.9 Polyosteoarthritis, unspecified M79.606 Pain in leg, unspecified M25.539 Pain in unspecified wrist R60.0 Localized edema H81.13 Benign paroxysmal vertigo, bilateral L20.9 Atopic dermatitis, unspecified J30.9 Allergic rhinitis, unspecified F41.9 Anxiety disorder, unspecified F33.9 Major depressive disorder, recurrent, unspecified G47.00 Insomnia, unspecified H53.30 Unspecified disorder of binocular vision J45.909 Unspecified asthma, uncomplicated H90.6 Mixed conductive and sensorineural hearing loss, bilateral Z28.20 Immuniz not crd out bec patient decision for unsp reason Z79.899 Other chcf (current) drug therapy Plan of Treatment 06/05/2018 - [facility] Crawley M.D.M15.9 Polyosteoarthritis, unspecifiedNew Medication:Benzonatate 100 mg - 1 cap by mouth three times a day as neededCiprofloxacin HCL 500 mg - 1 by mouth twice a dayComments:EXERCISE/HEAT/ MESSAGETYLENOL OR MOTRIN PRNAVOID HEAVY LIFTINGWT LOSS DUR KNZPTFAS26.2 Mixed hyperlipidemiaComments:DIET REVIEWED CONTINUE DIETWT LOSSF/U LAB FBWJ44.9 Chronic obstructive pulmonary disease, unspecifiedComments:INCREASE PO FLUIDRESTSMOKING CESSATION COUNCELLING NEB OR MDI AND /OR VTQQWPN25.210 Nicotine dependence, cigarettes, uncomplicatedComments:SMOKING CESSATION DBYMBWRSGCRW74.01 Morbid (severe) obesity due to excess caloriesComments:S/P BARIATIC SURGERYWT CONTROL COUNCELLINGEXERCISE/DIET COUNCILLING F/U WITH BARIATIC CLINIC PRNH90.6 Mixed conductive and sensorineural hearing loss, bilateralComments:OBSERVE F/U WITH ENT PRN SMOKING QCWWDIZUJB84.9 Allergic rhinitis, unspecifiedComments:INCREASE PO FLUID USE ANTIHISTAMINE PRN SECOND HAND SMOKING AVOIDANCE SMOKING YDQMDABJQX25.539 Pain in unspecified wristComments:EXERCISE/HEAT/MESSAGE TYLENOL OR MOTRIN PRNAVOID HEAVY LIFTING SAVANAH WRAP PRNELEVATE PRNH81.13 Benign paroxysmal vertigo, bilateralComments: SAFETY SMOKING JFASFHMGBJ42.9 Anxiety disorder, unspecifiedComments:COUNCELLING AND REASSURANCE RELAXATION TECHNIQUES DISCUSSEDCOUNSELED RE: STRESSORS IN LIFE AVOID ALLENERGY/HIGH CAFFEINE DRINKS DUR JAIUAVHV13.00 Insomnia, unspecifiedComments:COUNCELLING AND REASSURANCE RELAXATION TECHNIQUES DISCUSSED COUNSELED RE: STRESSORS IN LIFE TYLENOLPM OR MOTRIN PM PRN DUR [id number] Essential (primary) hypertensionComments:CHECK BP TIW ( PRN)DIET AND FLUID COUNSELING LOW SODIUM DIETWT LOSSF/U LAB SMOKING JSEYYZIDRE36.6 Pain in thoracic spineComments:EXERCISE/HEAT /MESSAGEAVOID HEAVY LIFTING WT LOSSTYLENOL OR MOTRIN PRN DUR WRAEKRHE49.37 Other intervertebral disc degeneration, lumbosacral regionComments:EXERCISE/HEAT /MESSAGEAVOID HEAVY LIFTING WT LOSSTYLENOL OR MOTRIN PRN DUR NKFZXQGE65.909 Unspecified asthma, uncomplicatedComments:MDI / NEBULIZER TX PRN AVOID EXPOSURE TO SMOKING OR FUMES SMOKING KLAXMHIKRI91.606 Pain in leg, unspecifiedComments:TYLENOL OR MOTRIN PRN EXERCISE/HEAT/MESSAGE DUR HIPUYOBP76.6 HypokalemiaComments:F/U LAB DIETERY HJOECVSRTIK87.9 Atopic dermatitis, unspecifiedComments:SKIN CARE INSTRUCTIONS LOTION OR BABY OIL 2-3 APPLICATION PER DAYUSE MOISTURIZING SOAPAVOID PROLONGED WATER EXPOSUREAVOID USING HOT WATER IN QSPCISA98.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:REVIEWED MEDICATIONS AND DIRECTIONS WITH PATIENT DUR UDIFXNRY76.9 Chest pain, unspecifiedComments:EXERCISE/HEAT/MESSAGE TYLENOL OR MOTRIN PRNHEAT PACKZ98.84 Bariatric surgery statusComments:F/U WITH SURGERYF/U DIET [id number] Localized edemaComments:ELEVATE LE PRNELASTIC STOCKING / SAVANAH WRAP PRNF/U LABM54.2 CervicalgiaComments:EXERCISE/HEAT / MESSAGEAVOID HEAVY LIFTING WT LOSSTYLENOL OR MOTRIN PRN DUR IVYMQNPH22.30 Unspecified disorder of binocular visionComments:USE GLASSES/CONTACTSF/U WITH XOCXRHDKZEDPEB08.9 Vitamin B12 deficiency anemia, unspecifiedComments:COUNSELED RE DIET/ AVOID ALCOHOL USEM79.671 Pain in right footComments:EXERCISE/HEAT/ MESSAGETYLENOL OR MOTRIN PRNACE WRAP PRN USE SHOES INSERTS/ BHQDJITY15.9 Major depressive disorder, recurrent, unspecifiedComments:COUNCELLING AND REASSURANCE RELAXATION TECHNIQUES DISCUSSED COUNSELED RE: STRESSORS IN LIFER09.81 Nasal congestionComments:INCREASE PO FLUIDTYLENOL OR MOTRIN PRNREST USE ANTIHISTAMINE PRN SMOKING CESSATION KIZCYJTVJLBF66.40 Acute pansinusitis, unspecifiedNew Medication:Prednisone 20 mg - 2 tab by mouth daily 4 days,30x3d, 20x2d,[id number]:INCREASE PO FLUIDTYLENOL OR MOTRIN PRN ANTIHISTAMINE PRNSMOKING CESSATION SMKUFKUFDHZY66.9 Acute bronchitis, unspecifiedComments: INCREASE PO FLUIDRESTSMOKING CESSATION COUNCELLING NEB OR MDI AND /OR [id number] CoughComments:INCREASE CLEAR LIQUIDSSTEAMGARGLE WARM SALT H2O TID ROBITUSSIN DM PRN SMOKING CESSATION XAHBVCPSEFHJ97.02 Shortness of breathComments:NEB OR MDI AND /OR OXYGENINCREASE PO FLUIDRESTSMOKING WKCCOCAVGG69.93 Otitis media, unspecified, bilateralComments:INCREASE PO FLUID TYLENOL OR MOTRIN PRN ANTIHISTAMINE PRNSMOKING CESSATION COUNCELLING
[2018-06-27 10:18] VITALS: BP 140/90
--- NOTE | 2018-06-27 10:55 | UC ---
Respiratory Complaint HPI - HPI Summary HPI Summary: Cough and pleuritic pain for 3 weeks. Saw PCP and was treated twice with 7 day course of Cipro with no improvement. Also given 2 courses of prednisone which did help transiently. States that about 3 weeks ago she also fell off a chair and struck her right rib cage. Has had pain in the area ever since, worse with movement and coughing. Denies wheezing or shortness of breath. - History of Current Complaint Chief Complaint: UCRespiratory Stated Complaint: CONGESTED Time Seen by Provider: 06/27/18 10:37 Hx Obtained From: Patient Onset/Duration: Gradual Onset, Lasting Weeks, Still Present Timing: Constant Severity Initially: Moderate Severity Currently: Moderate Pain Intensity: 10 Pain Scale Used: 0-10 Numeric Character: Cough: Nonproductive Aggravating Factors: Deep Breaths Alleviating Factors: Nothing Associated Signs And Symptoms: Positive: Pleuritic Chest Pain. Negative: Dyspnea, Fever, Wheezing, URI, Nasal Congestion - Allergies/Home Medications Allergies/Adverse Reactions: Allergies Allergy/AdvReac Type Severity Reaction Status Date / Time carisoprodol Allergy Shakes Verified 06/27/18 10:48 hydrocodone Allergy Itching Verified 06/27/18 10:46 Iodinated Contrast- Oral and Allergy Shortness Verified 06/27/18 10:46 IV Dye of Breath metolazone Allergy Hives Verified 06/27/18 10:48 milnacipran [From Savella] Allergy Hives Verified 06/27/18 10:48 morphine Allergy Itching Verified 06/27/18 10:46 Penicillins Allergy Rash Verified 06/27/18 10:47 pregabalin [From Lyrica] Allergy Swelling Verified 06/27/18 10:48 tramadol Allergy Itching Verified 06/27/18 10:47 Home Medications: Home Medications Cyclobenzaprine TAB* [Flexeril 10 MG TAB*] 10 mg PO TID PRN 06/27/18 [History Confirmed 06/27/18] Levalbuterol 1.25 mg/3 mL (NF) [Levalbuterol HCl] 1 neb INH QID 06/27/18 [ History Confirmed 06/27/18] Meclizine TAB* [Antivert 12.5 TAB*] 25 mg PO BID 06/27/18 [History Confirmed ] Potassium Chlor TAB* [Potassium Chlor TAB 20 MEQ*] 20 meq PO DAILY 06/27/18 [ History Confirmed 06/27/18] Sertraline* [Zoloft*] 100 mg PO DAILY 06/27/18 [History Confirmed 06/27/18] diazePAM [Valium] 5 mg PO DAILY 06/27/18 [History Confirmed 06/27/18] PMH/Surg Hx/FS Hx/Imm Hx - Additional Past Medical History Additional PMH: SPINAL STENOSIS, CERVICAL DISC DISORDER, CHRONIC FATIGUE SYNDROME, FIBROMYALGIA , IRON DEFICIENCY ANEMIA Cardiovascular History: Hypertension Respiratory History: COPD, Asthma Psychological History: Anxiety - Surgical History Surgical History: Yes Surgery Procedure, Year, and Place: C SECTION, CHOLECYSTECTOMY, GASTRIC BYPASS, BREAST REDUCTION, RIGHT WRIST SURGERY, HERNIA REPAIR, LEFT leg repair,RT FOOT SURGERY - Family History Known Family History: Positive: Respiratory Disease - Social History Alcohol Use: None Substance Use Type: None Smoking Status (MU): Former Smoker Type: Cigarettes Amount Used/How Often: 1/2-1PPD Length of Time of Smoking/Using Tobacco: 4-5 years Have You Smoked in the Last Year: Yes When Did the Patient Quit Smoking/Using Tobacco: 2016 - Immunization History Most Recent Influenza Vaccination: NOT UTD Most Recent Tetanus Shot: <5 YEARS Review of Systems Constitutional: Fatigue ENT: Sore Throat Respiratory: Cough Cardiovascular: Negative Gastrointestinal: Negative Musculoskeletal: Other: - RIGHT RIB CAGE PAIN All Other Systems Reviewed And Are Negative: Yes Physical Exam Triage Information Reviewed: Yes Appearance: Well-Appearing, No Pain Distress, Well-Nourished Vital Signs: Initial Vital Signs Temp 97.6 F 06/27/18 10:13 Pulse 110 06/27/18 10:13 Resp 20 06/27/18 10:13 BP 140/90 06/27/18 10:13 Pulse Ox 98 06/27/18 10:13 Vital Signs Reviewed: Yes Eyes: Positive: Conjunctiva Clear ENT: Positive: Hearing grossly normal, Pharynx normal, TMs normal Neck: Positive: Supple, Nontender, No Lymphadenopathy Respiratory: Positive: No respiratory distress, No accessory muscle use, Crackles - FINE RALES LLL Cardiovascular: Positive: Tachycardia Abdomen Description: Positive: Soft Musculoskeletal: Positive: No Edema, Other: - TTP RIGHT RIB CAGE POSTEROLATERALLY Neurological: Positive: Alert Psychological: Positive: Age Appropriate Behavior Skin: Negative: rashes UC Diagnostic Evaluation - Laboratory O2 Sat by Pulse Oximetry: 98 - Radiology Xray Interpretation: Positive (See Comments) - Nondisplaced RIGHT seventh rib fracture posterolaterally. Radiology Interpretation Completed By: Radiologist Respiratory Course/Dx - Differential Dx/Diagnosis Provider Diagnoses: Nondisplaced RIGHT seventh rib fracture posterolaterally. Discharge - Sign-Out/Discharge Documenting (check all that apply): Patient Departure All imaging exams completed and their final reports reviewed: Yes - Discharge Plan Condition: Stable Disposition: HOME Prescriptions: Benzonatate CAP* [Tessalon CAP*] 1 cap PO TID PRN #30 cap PRN Reason: Cough traMADol TAB* [Ultram*] 50 mg PO Q6HR PRN #20 tab MDD 4 PRN Reason: Pain Patient Education Materials: Rib Fracture (ED) Referrals: Tennille Crawley MD [Primary Care Provider] - 1 Week Cinthya Butler MD [Medical Doctor] - 2 Weeks Additional Instructions: Xray today shows Nondisplaced RIGHT seventh rib fracture posterolaterally. No lung pathology. Tramadol sparingly as needed for pain. Be sure to take deep breaths and use your incentive spirometer to keep your lungs expanded. Avoid taking Tramadol at the same time as your diazepam and flexeril to avoid compounding sedation. Follow-up with your PCP or ortho if you are not improving over the next 1-2 weeks. - Billing Disposition and Condition Condition: STABLE Disposition: Home
--- NOTE | 2018-06-27 11:27 | RAD ---
INDICATION: Cough, LEFT lower lobe Rales. Fall 3 weeks ago. COMPARISON: June 16, 2018 chest radiograph. TECHNIQUE: Dual energy PA and routine lateral views of the chest were obtained. 4 view RIGHT unilateral rib series. REPORT: Subjacent to the skin marker indicating the site of clinical concern a nondisplaced fracture of the RIGHT seventh rib is noted posterolaterally. Negative for pulmonary contusion, pleural effusion, or pneumothorax. The heart, pulmonary vasculature, and mediastinal contours are unremarkable. IMPRESSION: #. Nondisplaced RIGHT seventh rib fracture posterolaterally. Negative for pneumothorax.
== END 2018-06-27 12:12 | disposition home or self-care (01) ==
LOC: UCEAST 10:11
DX: S22.31XA Fracture of one rib, right side, initial encounter for closed fracture (principal); W07.XXXA Fall from chair, initial encounter; Y93.9 Activity, unspecified; Y92.9 Unspecified place or not applicable; Z88.8 Allergy status to other drugs, medicaments and biological substances; Z88.5 Allergy status to narcotic agent; Z88.0 Allergy status to penicillin; Z87.891 Personal history of nicotine dependence
CPT/HCPCS: 71046; 99212; G0463

== ENCOUNTER 2023-11-07 17:56 | Inpatient (IN) ==
[2023-11-07 19:09] LABS: ABS Lymphocytes 0.8 10^3/uL (1.0-4.8); ABS Monocytes 0.6 10^3/uL (0.0-0.9); ABS Neutrophils 18.7 10^3/uL (1.5-7.6); ABS Nucleated RBC 0.02 10^3/ul; Hematocrit 34.9 % (35-45); Mean Corpuscular Hemoglobin 32.9 pg (27-33); Mean Corpuscular Hgb Conc 34.3 g/dL (31-36); Mean Platelet Volume 6.9 fL (7.5-11.2); Nucleated Red Blood Cells % 0.1 %/100WBC (0.0-0.8); Platelet Count 405 10^3/uL (150-450); Red Blood Count 3.63 10^6/uL (3.63-4.92); Red Cell Distribution Width 12.4 % (12-17); White Blood Count 20.2 10^3/uL (3.8-11.8)
[2023-11-07 19:28] LABS: Albumin 3.9 g/dL (3.2-5.2); Albumin/Globulin Ratio 1.1 (1-3); Calcium 9.9 mg/dL (8.6-10.3); Creatinine, Serum 0.93 mg/dL (0.51-0.95); Globulin 3.7 g/dL (2-4); Magnesium 2.1 mg/dL (1.9-2.7); Potassium 2.6 mmol/L (3.5-5.0); Total Bilirubin 0.5 mg/dL (0.2-1.0); Total Protein 7.6 g/dL (6.4-8.9); eGFR CKD-EPI 67.8 (>60)
[2023-11-07] MEDS ORDERED: Potassium Chlor 20 meq TAB.ER PO ONE (20:27)
[2023-11-07] MEDS ORDERED: KCL 20 MEQ/100 ML IVPREMIX 20 MEQ/100 ML BAG IV ONE (20:28)
[2023-11-07 21:05] LABS: C Reactive Protein 378.56 mg/L (<8.01)
[2023-11-07] MEDS ORDERED: Lactated Ringers 1000 ml BAG 1,000 ML IV ONE (21:12)
[2023-11-07] MEDS ORDERED: Cefepime 2 GM in Dextrose 2 GM/50 ML BAG IV ONE (21:49)
[2023-11-07] MEDS ORDERED: HYDROcodone/ACETAMIN 5/325 mg TAB PO ONE (21:54)
[2023-11-07] MEDS ORDERED: Vancomycin 1,250 MG in NS 0.9% 250 ml 250 ML IVPB SCH (22:00)
[2023-11-07 22:10] LABS: Urine Appearance Cloudy; Urine Bilirubin Negative (Negative); Urine Blood Negative (Negative); Urine Color Yellow; Urine Glucose Negative (Negative); Urine Ketones Negative (Negative); Urine Nitrite Positive (Negative); Urine Protein Negative (Negative); Urine Specific Gravity 1.011 (1.002-1.030); Urine Urobilinogen Negative (Negative)
[2023-11-07 22:37] LABS: Urine Bacteria 1+ (Absent); Urine Red Blood Cell Absent (Absent); Urine Squamous Epithelial Cell Present (Absent); Urine White Blood Cell 2+(11-20/hpf) (Absent)
[2023-11-08] MEDS ORDERED: Lactated Ringers 1000 ml BAG 1,000 ML IV SCH ×2 (01:00→17:00)
[2023-11-08 01:50] LABS: Anion Gap 14 mmol/L (2-16); Blood Urea Nitrogen 40 mg/dL (6-24); CO2 Carbon Dioxide 24 mmol/L (22-32); Calcium 9.7 mg/dL (8.6-10.3); Chloride 90 mmol/L (101-111); Creatinine, Serum 0.82 mg/dL (0.51-0.95); Glucose 96 mg/dL (70-100); Sodium 128 mmol/L (135-145); eGFR CKD-EPI 78.8 (>60)
[2023-11-08] MEDS: Enoxaparin 40 MG/0.4 ML SYR SUBCUT SCH ×2 (01:52→21:11)
[2023-11-08 07:01] LABS: Calcium 9.4 mg/dL (8.6-10.3); Creatinine, Serum 0.77 mg/dL (0.51-0.95); Potassium 3.2 mmol/L (3.5-5.0)
[2023-11-08 07:37] LABS: ABS Monocytes 0.5 10^3/uL (0.0-0.9); ABS Neutrophils 9.8 10^3/uL (1.5-7.6); ABS Nucleated RBC 0.01 10^3/ul; Eosinophil % 0.2 %; Hematocrit 33.7 % (35-45); Hemoglobin 11.2 g/dL (11.5-14.3); Lymphocyte % 9.2 %; Mean Corpuscular Hemoglobin 32.9 pg (27-33); Mean Corpuscular Hgb Conc 33.1 g/dL (31-36); Mean Corpuscular Volume 99.3 fL (80-97); Mean Platelet Volume 6.7 fL (7.5-11.2); Nucleated Red Blood Cells % 0.1 %/100WBC (0.0-0.8); Platelet Count 348 10^3/uL (150-450); Red Cell Distribution Width 12.8 % (12-17); White Blood Count 12.3 10^3/uL (3.8-11.8)
[2023-11-08] MEDS ORDERED: Potassium Chlor 20 meq TAB.ER PO ONE (07:55)
[2023-11-08] MEDS: Tiotropium Brom/Olodaterol MDI (ACUTE) INH SCH (09:00)
[2023-11-08] MEDS ORDERED: Potassium Chlor 20 meq TAB.ER PO SCH (09:00)
[2023-11-08] MEDS ORDERED: cefTRIAXone 1 gm/50 mL D5W 1 GM/50 ML BAG IV SCH (09:00)
[2023-11-08] MEDS: DULoxetine DR 60 mg CAP PO SCH (09:38)
[2023-11-08] MEDS: Polyethylene Glycol 3350 17 GM PACKET PO SCH (09:39)
[2023-11-08] MEDS: Cefepime 2 GM in Dextrose 2 GM/50 ML BAG IV SCH ×2 (09:40→21:10)
[2023-11-08] MEDS: oxyCODONE/Acetamin 5/325 mg TAB PO PRN ×3 (09:44→21:47)
[2023-11-08] MEDS ORDERED: Benzocaine/Menthol LOZ MT PRN (16:43)
[2023-11-08 19:12] LABS: Urine Osmo 442 mOsm/kg (150-1150)
[2023-11-08] MEDS: Senna TAB 8.6 mg TAB PO SCH (21:02)
[2023-11-08] MEDS ORDERED: oxyCODONE/Acetamin 5/325 mg TAB PO PRN (21:34)
[2023-11-09 07:11] LABS: ABS Basophils 0.1 10^3/uL (0.0-0.1); ABS Eosinophils 0.1 10^3/uL (0.0-0.5); ABS Lymphocytes 1.3 10^3/uL (1.0-4.8); ABS Monocytes 0.5 10^3/uL (0.0-0.9); ABS Neutrophils 7.9 10^3/uL (1.5-7.6); Eosinophil % 1.5 %; Hematocrit 30.8 % (35-45); Hemoglobin 10.7 g/dL (11.5-14.3); Lymphocyte % 12.7 %; Mean Corpuscular Hemoglobin 33.4 pg (27-33); Mean Corpuscular Hgb Conc 34.8 g/dL (31-36); Platelet Count 373 10^3/uL (150-450); Red Blood Count 3.21 10^6/uL (3.63-4.92); Red Cell Distribution Width 12.7 % (12-17); White Blood Count 9.9 10^3/uL (3.8-11.8)
[2023-11-09 07:32] LABS: Calcium 9.4 mg/dL (8.6-10.3); Creatinine, Serum 0.72 mg/dL (0.51-0.95); Magnesium 1.9 mg/dL (1.9-2.7); Potassium 3.9 mmol/L (3.5-5.0); eGFR CKD-EPI 91.6 (>60)
[2023-11-09] MEDS: oxyCODONE/Acetamin 5/325 mg TAB PO PRN (08:19)
[2023-11-09] MEDS: Polyethylene Glycol 3350 17 GM PACKET PO SCH (08:19)
[2023-11-09] MEDS: DULoxetine DR 60 mg CAP PO SCH (08:19)
[2023-11-09] MEDS: Cefepime 2 GM in Dextrose 2 GM/50 ML BAG IV SCH ×2 (08:20→20:42)
[2023-11-09] MEDS: Tiotropium Brom/Olodaterol MDI (ACUTE) INH SCH (09:01)
[2023-11-09] MEDS ORDERED: Lactated Ringers 1000 ml BAG 1,000 ML IV ONE (14:24)
[2023-11-09] MEDS ORDERED: Lactated Ringers 1000 ml BAG 1,000 ML IV SCH (16:30)
[2023-11-09] MEDS ORDERED: HYDROcodone/ACETAMIN 5/325 mg TAB PO PRN (18:06)
[2023-11-09 20:04] LABS: Folate 17.62 ng/mL (5.90-24.80)
[2023-11-09] MEDS: Senna TAB 8.6 mg TAB PO SCH (20:47)
[2023-11-09] MEDS: Enoxaparin 40 MG/0.4 ML SYR SUBCUT SCH (21:13)
[2023-11-09 23:50] LABS: Anaplasma phagocytophilum Negative (Negative); B. miyamotoi PCR, B Negative (Negative); Babesia divergens/MO-1 Negative (Negative); Babesia ducani Negative (Negative); Ehrlichia chaffeensis Negative (Negative); Ehrlichia ewingii/canis Negative (Negative); Ehrlichia muris eauclairensis Negative (Negative)
[2023-11-10] MEDS ORDERED: LORazepam 2 mg VIAL 1 ml IV PUSH ONE (02:49)
[2023-11-10] MEDS ORDERED: Lorazepam PYXIS KEY PRN (02:49)
[2023-11-10 06:01] LABS: Calcium 9.4 mg/dL (8.6-10.3); Creatinine, Serum 0.5 mg/dL (0.51-0.95); Potassium 4.2 mmol/L (3.5-5.0); eGFR CKD-EPI 102.7 (>60)
[2023-11-10] MEDS: Tiotropium Brom/Olodaterol MDI (ACUTE) INH SCH (08:21)
[2023-11-10] MEDS: Cefepime 2 GM in Dextrose 2 GM/50 ML BAG IV SCH (09:40)
[2023-11-10] MEDS: DULoxetine DR 60 mg CAP PO SCH (09:56)
[2023-11-10] MEDS: Polyethylene Glycol 3350 17 GM PACKET PO SCH (09:58)
[2023-11-10 14:11] VITALS: BP 159/93
== END 2023-11-10 14:30 | disposition home or self-care (01) | DRG 872 ==
LOC: ED 17:56 → EDHOLD 23:59 → SUATTDRO 23:59 → MEDTELE 11-08 02:54
PROVIDERS: ADMIT Internal Medicine; ATTEND Internal Medicine